=== PATIENT | female | born 1935 | race Caucasian/White ===

== ENCOUNTER 2022-04-14 08:46 | Emergency (ER) | payer MEDICARE, OTHER ==
[~2022-04-14] VITALS: Ht 162.6 cm; Wt 63.6 kg
[2022-04-14] VITALS (11 sets, daily range): BP systolic 136–158; BP diastolic 64–81
[2022-04-14] MEDS ORDERED: NORVASC10 M1 PO (09:37)
[2022-04-14] MEDS ORDERED: SYNTHROID25 MCG PO (09:37)
[2022-04-14] MEDS ORDERED: FENOFIBRATE145 MG PO (09:38)
[2022-04-14] MEDS ORDERED: ISOSORB MONO30 MG PO (09:39)
[2022-04-14] MEDS ORDERED: BENAZEPRIL HYDR1 TA1 PO (09:39)
[2022-04-14] MEDS ORDERED: TOPAMAX100 MG PO (09:40)
[2022-04-14] MEDS ORDERED: TOPROL XL25 M1 PO (09:40)
[2022-04-14] MEDS ORDERED: FISH OIL1000 M2 PO (09:41)
[2022-04-14] MEDS ORDERED: ASPIRIN LOW81 M1 PO (09:41)
[2022-04-14] MEDS ORDERED: LIPITOR10 M1 PO (09:42)
[2022-04-14] MEDS ORDERED: CALCIUM1250 MG PO (09:43)
[2022-04-14] MEDS ORDERED: ARIMIDEX1 MG PO (09:43)
[2022-04-14 09:52] LABS: BASO% 0.7 % (0-3); EOS% 2.8 % (0-8); HEMATOCRIT 35.3 % (37.0-47.0); HEMOGLOBIN 11.9 g/dl (12.0-16.0); IMMATURE GRANULOCYTES 0.5 % (0.0-5.0); LYMPH% 10.3 % (15-41); MEAN CELL VOLUME 79.3 fL CALC (80.0-100.0); MEAN CORPUSCULAR HGB 26.7 pG CALC (26.0-32.0); MEAN CORPUSCULAR HGB CONC 33.7 g/dL CAL (32.0-36.0); MONO% 8.5 % (2-13); NEUT# 6.52 thou/uL (2.00-7.15); NEUT% 77.2 % (42-76); RED BLOOD COUNT 4.45 mill/uL (4.20-5.60)
[2022-04-14 09:58] LABS: GFR FOR AFR.AMER. > 60 ML/MIN (>=60 (CALC)); GFR OTHER RACES 53 ML/MIN (>=60 (CALC))
[2022-04-14 10:03] LABS: ALBUMIN 4.7 g/dL (3.2-5.0); ALKALINE PHOSPHATASE 42 u/l (38-126); BUN 14 mg/dL (8-23); BUN/CREATININE RATIO 16 (12-20 (CALC)); CARBON DIOXIDE 26 mmol/l (22-30); CHLORIDE 89 mmol/l (95-108); CREATININE 0.9 mg/dL (0.5-1.0); GFR FOR AFR.AMER. > 60 ML/MIN (>=60 (CALC)); GFR OTHER RACES 60 ML/MIN (>=60 (CALC)); SGOT/AST 36 u/l (9-36); TOTAL PROTEIN 8.1 g/dL (6.3-8.2)
[2022-04-14 10:10] LABS: ANION GAP 13 (6-22 (CALC)); BILIRUBIN, TOTAL 0.9 mg/dL (0.0-1.4); POTASSIUM 3.3 mmol/l (3.5-5.1); SODIUM 125 mmol/l (137-146)
[2022-04-14] MEDS ORDERED: AMOX/K CLA400 MG/5 M PO (11:47)
[2022-04-14 11:48] LABS: URINE BILIRUBIN - DIPSTICK NEGATIVE (NEGATIVE); URINE BLOOD DIPSTICK TRACE-INTACT (NEGATIVE); URINE COLOR YELLOW; URINE GLUCOSE - DIPSTICK NEGATIVE (NEGATIVE); URINE KETONE NEGATIVE (NEGATIVE); URINE LEUK ESTERASE NEGATIVE (NEGATIVE); URINE PROTEIN - DIPSTICK NEGATIVE (NEG-TRACE); URINE UROBILINOGEN - DIPSTICK 0.2 E.U./dL (0.2)
[2022-04-14 11:50] LABS: URINE NITRITE - DIPSTICK NEGATIVE (Negative)
== END 2022-04-14 12:09 | disposition home or self-care (01) ==
LOC: ED 08:46
PROVIDERS: Family Medicine
DX: R13.10 Dysphagia, unspecified (principal); J32.0 Chronic maxillary sinusitis; J84.10 Pulmonary fibrosis, unspecified; E03.9 Hypothyroidism, unspecified; I10 Essential (primary) hypertension; Z85.3 Personal history of malignant neoplasm of breast; Z20.822 Contact with and (suspected) exposure to COVID-19
CPT/HCPCS: Q9967